=== PATIENT | male | born 1935 | race Two or more races ===

== ENCOUNTER 2023-09-19 02:19 | Emergency (ER) | payer OTHER ==
[~2023-09-19] VITALS: Ht 188 cm; Wt 100.0 kg
[2023-09-19 02:56] VITALS: PULSE 100; RESP 18; O2SAT 91
[2023-09-19 03:49] LABS: Basophils # (auto) 0 10 ^3/uL (0-0.2); Eosinophils # (auto) 0 10 ^3/uL (0-0.8); Hemoglobin 10.9 g/dL (13.5-17.5); Lymphocytes # (auto) 0.4 10 ^3/uL (0.4-5.4); Monocytes # (auto) 1.3 10 ^3/uL (0-1.3)
[2023-09-19 03:50] LABS: Basophils % (auto) 0.1 % (0.0-2.0); Hematocrit 33.6 % (41.0-53.0); Mean Corpuscular Hemoglobin 33.3 pg (28.0-32.0); Mean Corpuscular Hgb Conc. 32.6 g/dL (32.0-36.0); Mean Corpuscular Volume 102.3 fL (80.0-100.0); Monocytes % (auto) 6.4 % (0.0-12.0); Neutrophils % (auto) 91.5 % (37.0-80.0); Red Blood Cells 3.28 10^6/uL (4.5-5.90); Red Cell Distribution Width 16.1 % (11.8-14.3); White Blood Cell 19.7 10^3/uL (4.4-10.8)
[2023-09-19 04:08] LABS: Alanine Aminotransferase 16 U/L (7-40); Albumin 3.7 g/dL (3.2-4.8); Alkaline Phosphatase 69 U/L (46-116); Anion Gap 10 (5-15); Aspartate Aminotransferase 17 U/L (13-40); BUN/Creatinine Ratio 13.5 (10.0-20.0); Blood Urea Nitrogen 18 mg/dL (9-23); Calcium 9.2 mg/dL (8.7-10.4); Carbon Dioxide 22 mmol/L (20-30); Chloride 104 mmol/L (98-107); Glucose 126 mg/dL (74-106); Potassium 4.5 mmol/L (3.5-5.1); Sodium 136 mmol/L (136-145)
[2023-09-19 04:09] LABS: Bilirubin, Total 0.6 mg/dL (0.2-1.0); Total Protein 5.8 g/dL (5.7-8.2)
[2023-09-19] MEDS: ASPirin 325 MG TAB PO ONE (04:57)
[2023-09-19] MEDS: NITROGLYCERIN 2% OINT 1GM PKG TD ONE (05:05)
[2023-09-19] MEDS: cefTRIAXone 1GM/50ML D5W 50 ML IV ONE (05:14)
[2023-09-19] MEDS: ALBUTEROL SULF 2.5 MG/0.5ML(0.5%) NEB SOLN NEB ONE (05:28)
[2023-09-19] MEDS: AZITHROMYCIN 500MG/ 250ML 250 ML IV ONE (06:00)
[2023-09-19 08:00] VITALS: PULSE 87; RESP 18; O2SAT 93
[2023-09-19 11:44] VITALS: BP 106/44; PULSE 89; RESP 22; TEMP 97.8; O2SAT 92
[2023-09-19 11:48] LABS: COVID19 ANTIGEN SOFIA FIA NEGATIVE (NEGATIVE)
== END 2023-09-19 11:49 | disposition short-term general hospital (02) ==
LOC: ER 02:19 → EDBD 02:19 → ER 11:49
DX: I21.4 Non-ST elevation (NSTEMI) myocardial infarction (principal); J18.9 Pneumonia, unspecified organism; M54.2 Cervicalgia; I11.0 Hypertensive heart disease with heart failure; I50.9 Heart failure, unspecified; J44.9 Chronic obstructive pulmonary disease, unspecified; Z88.6 Allergy status to analgesic agent; Z20.822 Contact with and (suspected) exposure to COVID-19
CPT/HCPCS: 36415; 70450; 71045; 71250; 72125; 72131; 74176; 80053; 83880; 84484; 85025; 87426; 93005; 94640; 96365; 96366; 96367; 99285; J0456; J0696